=== PATIENT | female | born 1980 | race Two or more races ===

== ENCOUNTER 2018-01-01 10:07 | Outpatient (CLI) | payer OTHER | END 2018-01-01 10:24 | disposition home or self-care (01) | LOC: RAD 10:07 → RX STUDY 10:15 → RAD 10:24 | DX: N93.8 Other specified abnormal uterine and vaginal bleeding (principal); N97.8 Female infertility of other origin; N83.201 Unspecified ovarian cyst, right side; N83.202 Unspecified ovarian cyst, left side; N83.291 Other ovarian cyst, right side; N83.292 Other ovarian cyst, left side ==